=== PATIENT | female | born 1950 | race Caucasian/White ===

== ENCOUNTER 2023-04-22 14:22 | Emergency (ER) | payer MEDICARE ==
[2023-04-22 15:01] VITALS: BP 137/83; O2SAT 96
--- NOTE | 2023-04-22 15:42 | ED Physician Documentation ---
History of Present Illness - Stated complaint Stated Complaint: C+ - Chief complaint Chief Complaint: Resp - History obtained from History obtained from: Patient - Additonal information Additional information: She developed symptomatic COVID 5 days ago with body aches, sore throat, and significant headache. She felt much better over the last couple of days but was short of breath earlier today which responded to her albuterol inhaler. She is not short of breath now. PD PAST MEDICAL HISTORY - Past Medical History Past Medical History: Yes Cardiovascular: Hypertension Respiratory: Asthma - Past Surgical History Past Surgical History: No - Present Medications Home Medications: Ambulatory Orders Medication Instructions Recorded Confirmed Lisinopril [Zestril] 10 mg PO DAILY 04/22/23 04/22/23 - Allergies Allergies/Adverse Reactions: Allergies Allergy/AdvReac Type Severity Reaction Status Date / Time Penicillins Allergy Rash Verified 04/22/23 15:01 - Social History Does the pt smoke?: No Smoking Status: Never smoker Does the pt drink ETOH?: No Does the pt have substance abuse?: No - POLST Patient has POLST: No PD ED PE NORMAL - Vitals Vital signs reviewed: Yes - General General: Alert and oriented X 3, No acute distress - HEENT HEENT: Pharynx benign - Neck Neck: Supple, no meningeal sign, No bony TTP - Cardiac Cardiac: RRR, No murmur - Respiratory Respiratory: No respiratory distress, Clear bilaterally - Abdomen Abdomen: Non tender - Neuro Neuro: Alert and oriented X 3, Normal speech Results - Vitals Vitals: Vital Signs - 24 hr 04/22/23 14:56 Temperature 36.4 C L Heart Rate 87 Respiratory 16 Rate Blood Pressure 137/83 H O2 Saturation 96 Oxygen O2 Source Room air PD Medical Decision Making - ED course ED course: She is already at the outside time frame to consider antivirals and she had a bad reaction to paxlovid previously so did not wanted anyways. Otherwise seems like she is doing better with clear lungs and normal vitals. Departure - Departure Disposition: 01 Home, Self Care Clinical Impression: COVID-19 Condition: Good Record reviewed to determine appropriate education?: Yes Instructions: ED Viral Syndrome Comments: Drink plenty of fluids. You can take Tylenol for aches and pains. You can test every day or 2 for COVID with a home test and once it is negative probably okay to be closer to grandchildren and not quarantine.
== END 2023-04-22 16:03 | disposition home or self-care (01) ==
LOC: ED 14:22
DX: U07.1 COVID-19 (principal); I10 Essential (primary) hypertension
CPT/HCPCS: 99281; 99283